=== PATIENT | female | born 1940 | race Caucasian/White ===

== ENCOUNTER 2017-06-12 08:22 | Inpatient (IN) ==
[2017-06-12] MEDS ORDERED: Lidocaine -MPF 1% 2 ML VIAL ID ONE (08:56)
[2017-06-12] MEDS ORDERED: Albuterol 2.5 MG/3 ML NEBULIZER IH ONE (08:56)
[2017-06-12] MEDS ORDERED: CeFAZolin Pre 2,000 MG/100 ML 2,000 MG/100 ML BAG IVPB ONE (08:56)
[2017-06-12] MEDS ORDERED: Ringers Solution, Lactated 1,000 ML IVC SCH (09:00)
--- NOTE | 2017-06-12 09:02 | History & Physical Report ---
Date of Encounter: 06/12/17 Time of Encounter: 08:59 24 Hour HP Update - Instructions Instructions: If the History and Physical is less than 30 days old and was completed prior to A.M. admission and or procedure and has NOT been updated on calendar day of procedure please complete this update prior to performing procedure. - Update Patient reports changes in Medical Condition: No Changes in examination, assessment, or condition: No Changes in Medication: No Preop tests/diagnostics Reviewed: Yes Pre-Op MRSA Screen: Negative Surgery Remains Indicated: Yes Consent for Planned Operative Procedure(s) Verified: Yes - Pre-Operative Checklist Preoperative Checklist Indicated: No Prophylactic Antibiotic Ordered: Yes Home Medications Include Beta Rosmery: Yes Beta Rosmery Taken Today (Day of Surgery): Yes Beta Rosmery Taken Yesterday (Day Prior to Surgery): Yes Is VTE Prophylaxis Indicated?: Yes
--- NOTE | 2017-06-12 09:15 | Anesthesia Evaluation PreOp ---
Date of Encounter: 06/12/17 Time of Encounter: 09:13 - Past History Planned Operation: pericardial window Cardiac History: HTN, Hyperlipidemia, Arrhythmia (afib), Cardiac Stent, Other ( CAD, small pericardial effusion, PAD) Pulmonary History: Smoker (had 2 this morning), Pack/yr (58), COPD, Other ( small cell lung CA, LULobectomy 09/06 for stage 1 cancer, no chemo/XRT) [employer]UTION SALES SENIOR EXECUTIVE History: Other (peripheral neuropathy) Other Medical History: Diabetes Type II, GERD, Other (remote colon obstruction) Anesthesia History: No Prior Anesthetic Complications, Past Anesthesia ( thoracotomy, left SIGIFREDO, appy, jaime, explor. lap with colon resection) : No Alcohol Use: none Drug use: none Medications and Allergies Acetaminophen w/Cod 300-30 mg [Tylenol w/Codeine #3] 1 each PO BID PRN 06/12/17 [History] Albuterol Neb [Proventil Neb] 2.5 mg IH TID PRN 06/12/17 [History] Aspirin 81 mg PO DAILY 06/12/17 [History] Atorvastatin Calcium [Lipitor] 20 mg PO DAILY 06/12/17 [History] Clopidogrel [Plavix] 75 mg PO DAILY 06/12/17 [History] DULoxetine [Cymbalta] 30 mg PO DAILY 06/12/17 [History] Enalapril Maleate [Vasotec] 10 mg PO DAILY 06/12/17 [History] Furosemide [Lasix] 20 mg PO DAILY 06/12/17 [History] Gabapentin [Neurontin] 300 mg PO BID 06/12/17 [History] Isosorbide MONOnitrate (24 HR) [Imdur] 60 mg PO DAILY 06/12/17 [History] Metoprolol XL (24 HR) Succ [Toprol XL] 25 mg PO DAILY 06/12/17 [History] Omeprazole [PriLOSEC] 20 mg PO DAILY 06/12/17 [History] metFORMIN [Glucophage] 500 mg PO TID 06/12/17 [History] 3 Allergy/AdvReac Type Severity Reaction Status Date / Time No Known Allergies Allergy Unverified 12/12/16 11:25 - Meds/Allergy Pre-op Review Medications Reviewed: Yes Allergies Reviewed: Yes Beta Blockers on Current Med List: Yes If Beta Blockers taken, Date/Time (Last Dose taken): this morning 914 Anesthesia Results - Labs Laboratory Tests 06/06/17 06/08/17 15:11 16:09 Hgb 13.6 Hct 39.4 Plt Count 226 Sodium 126 L Potassium 4.4 BUN 17 Creatinine 0.77 - Imaging Additional studies: echo: Impressions: LVEF 60-65%. Normal LV chamber size, wall thickness and function. Indeterminate diastolic function. Normal right ventricular structure and function. Mild tricuspid regurgitation. Mild pulmonary hypertension. Mild pulmonic regurgitation. There is a moderate pericardial effusion present. There is no echocardiographic evidence of tamponade. The IVC is not well evaluated. Nuc. stress test 12/05: Perfusion imaging was negative for ischemia or infarct. Baseline ECG demonstrates an ectopic atrial rhythm, possibly wandering atrial pacemaker. Gated EF = 55%. 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
[2017-06-12] MEDS ORDERED: *HR* Rocuronium Bromide 50 MG/5 ML VIAL ONE (09:24)
[2017-06-12] MEDS ORDERED: *HR* Etomidate 20 MG/10 ML AMPUL IVP ONE (09:24)
[2017-06-12] MEDS ORDERED: *HR* FentaNYL (PF) 250 MCG/5 ML VIAL ONE (09:25)
[2017-06-12] MEDS ORDERED: *HR* Midazolam HCl 5 MG/5 ML VIAL IVP ONE (09:25)
[2017-06-12] MEDS ORDERED: Ondansetron 4 MG/2 ML VIAL ONE (09:51)
[2017-06-12] MEDS ORDERED: Dexamethasone 4 MG/ML VIAL ONE (09:51)
[2017-06-12] MEDS ORDERED: *HR* Metoprolol 5 MG/5 ML VIAL IVP ONE (10:03)
[2017-06-12] MEDS ORDERED: Naloxone 0.4 MG/ML INJ IVP PRN (11:22)
[2017-06-12] MEDS ORDERED: *HR* Morphine 2 MG/ML SYRINGE IVP PRN (11:22)
[2017-06-12] MEDS ORDERED: *HR* Morphine 2 MG/ML SYRINGE ONE (11:26)
--- NOTE | 2017-06-12 11:38 | Operative Note ---
Date of procedure: 06/12/17 Pre-op diagnosis: Pericardial effusion, moderate. Post-op diagnosis: same Procedure: 1. Median sternotomy. 2. Anterior pericardial resection. Implants: None. Complications: None. Anesthesia: GETA Surgeon: Terri Mills Estimated blood loss (cc): 50 Specimen: 1. Pericardial fluid 2. Anterior pericardium Condition: stable Disposition: ICU Procedure in Detail: INDICATIONS FOR OPERATION: The patient is a 77-year-old type II diabetic, hypertensive lady with hypercholesterolemia, known coronary artery disease, known atrial fibrillation, and known small cell lung carcinoma, stage I. Patient has been followed by her certified professional controller, Dr. Gómez Benedict, for several years and in August 2016 complained of shortness of breath. The patient was referred to her noc technician who performed a chest x-ray. This showed a left upper lobe lung mass which was confirmed by chest CT. She underwent left upper lobectomy at [facility] in [facility]. The pathology was consistent with a Stage I small cell lung carcinoma. She was not recommended for postoperative chemotherapy or radiation therapy. The patient underwent an echocardiogram on May 19, 2017 which revealed an LVEF 60-65% with mild pulmonary hypertension and a moderate pericardial effusion. Dr. Benedict was concerned patient may have a recurrence of her small cell lung carcinoma manifested by a malignant pericardial effusion. Patient was referred for subxiphoid pericardial window and drainage of pericardial fluid to rule out metastatic disease. FINDINGS AT OPERATION: The patient had approximately 400 mL of yellow turbid fluid within the pericardium. The patient had a hyperexpanded right lung and shift of the pericardium towards the left due to her previous left upper lobe resection. This complicated closure of the pericardium and necessitated a median sternotomy to access the pericardium. DESCRIPTION OF OPERATION: After obtaining informed option for the patient, she was taken to the operative were satisfactory general endotracheal anesthetic was induced. Appropriate monitoring lines were placed and the patient's neck, chest, and upper abdomen were prepped and draped in a sterile fashion. Initially a small incision was made over the xiphoid process to the skin and subcutaneous tissue. The xiphoid process was lifted anteriorly; however, the pericardium could not be identified. The right lung was hyperinflated and crossed the midline. This coupled with the previous left upper lobe resection and volume loss in the left hemithorax shifted the pericardium to the left. The pericardium could not be exposed safely through this small incision. This point a standard median sternotomy incision was then made through the skin and subcutaneous tissue. The sternum was divided and laterally. The right lung was dissected from the anterior pericardium. The anterior pericardium was opened and a trigonal patch was removed and sent for permanent section. Approximately 400 mL of yellow turbid pericardial fluid was removed. A portion of this fluid was sent for CBC, chemistry, culture (including aerobic, anaerobic, fungal, and TB), and cytology. Two 32 Moroccan chest suture placed, one along the diaphragm and the pericardial space and the second into the right pleural space. The dura were reapproximated using sternal wires and the pectoralis major fascia, rectus abdominis fascia, subcutaneous tissue, and skin edges reapproximated using running Vicryl sutures. A negative pressure sterile dressing was placed on the sternotomy incision. The patient was transferred to the ICU in satisfactory postoperative condition. There were no intraoperative complications, and the instrument, needle, and sponge count were correct at end of operation.
[2017-06-12 12:04] LABS: Basophils # 0.1 K/mcL (0.0-0.2); Basophils % 0.4 %; Eosinophils # 0.2 K/mcL (0.0-0.6); Eosinophils % 1.1 %; Hematocrit 38.2 % (35.3-44.9); Hemoglobin 12.9 g/dL (11.5-15.4); Immature Granulocytes % 0.6 % (0-4); Lymphocytes # 1.1 K/mcL (0.6-4.6); Lymphocytes % 6.1 %; Mean Corpuscular HGB Conc 33.8 g/dL (31.6-35.5); Mean Corpuscular Hemoglobin 31.4 pg (28.0-33.3); Mean Corpuscular Volume 92.9 fL (83.0-100.0); Mean Platelet Volume 10.7 fL (9.4-12.4); Monocytes % 3.6 %; Neutrophils # 15.7 K/mcL (1.6-8.9); Platelet Count 212 K/mcL (140-400); Red Blood Count 4.11 M/mcL (3.82-4.97); Red Cell Distribution Width 14.1 % (11.5-14.5); Segmented Neutrophils % 88.2 %
[2017-06-12 12:08] LABS: Monocytes # 0.6 K/mcL (0.0-1.3)
[2017-06-12] MEDS: *HR* Morphine 2 MG/ML SYRINGE IVP PRN ×2 (12:11→14:57)
[2017-06-12 12:15] LABS: BUN/Creatinine Ratio 16 (6-26); Blood Urea Nitrogen 13 mg/dL (7-20); Calcium 9.1 mg/dL (8.6-10.8); Carbon Dioxide 28 mEq/L (19-29); Chloride 96 mEq/L (98-109); Glucose 127 mg/dL (70-99); Osmolality,Calculated 276 (280-300); Sodium 132 mEq/L (136-145); eGFR For African Americans > 60 (> 60); eGFR For Non-African Americans > 60 (> 60)
[2017-06-12] MEDS: Albuterol 2.5 MG/3 ML NEBULIZER IH SCH ×3 (13:20→20:10)
[2017-06-12 13:29] LABS: Glucose,Pericardial Fluid 112 mg/dL (No Ref Range)
[2017-06-12] MEDS: 0.9 % Sodium Chloride w KCl 20 MEQ/1,000 ML MLS IVC SCH (14:52)
[2017-06-12] MEDS: ceFAZolin 2,000 MG in D5% in Water 100 ML IVPB SCH (14:52)
[2017-06-12 14:55] LABS: Appearance of Pericardial Fl Clear (Clear)
[2017-06-12] MEDS: *HR* OxyCODONE/APAP 5/325 TABLET PO PRN ×2 (16:09→20:13)
[2017-06-13] MEDS: Albuterol 2.5 MG/3 ML NEBULIZER IH SCH ×7 (00:02→20:33)
[2017-06-13] MEDS: *HR* OxyCODONE/APAP 5/325 TABLET PO PRN ×3 (00:11→20:16)
[2017-06-13] MEDS: ceFAZolin 2,000 MG in D5% in Water 100 ML IVPB SCH (00:11)
[2017-06-13] MEDS: *HR* Morphine 2 MG/ML SYRINGE IVP PRN ×6 (00:24→16:57)
[2017-06-13] MEDS: 0.9 % Sodium Chloride w KCl 20 MEQ/1,000 ML MLS IVC SCH (04:58)
[2017-06-13 07:24] LABS: Basophils # 0.1 K/mcL (0.0-0.2); Basophils % 0.4 %; Eosinophils % 0.2 %; Hematocrit 35.8 % (35.3-44.9); Hemoglobin 11.9 g/dL (11.5-15.4); Immature Granulocytes % 0.6 % (0-4); Lymphocytes # 0.8 K/mcL (0.6-4.6); Lymphocytes % 5.7 %; Mean Corpuscular HGB Conc 33.2 g/dL (31.6-35.5); Mean Corpuscular Hemoglobin 31.3 pg (28.0-33.3); Mean Corpuscular Volume 94.2 fL (83.0-100.0); Mean Platelet Volume 10.7 fL (9.4-12.4); Monocytes # 1.1 K/mcL (0.0-1.3); Monocytes % 7.7 %; Neutrophils # 12.2 K/mcL (1.6-8.9); Platelet Count 207 K/mcL (140-400); Red Cell Distribution Width 14.3 % (11.5-14.5); Segmented Neutrophils % 85.4 %
[2017-06-13 07:35] LABS: BUN/Creatinine Ratio 17 (6-26); Blood Urea Nitrogen 14 mg/dL (7-20); Calcium 8.8 mg/dL (8.6-10.8); Carbon Dioxide 28 mEq/L (19-29); Chloride 95 mEq/L (98-109); Glucose 150 mg/dL (70-99); Osmolality,Calculated 273 (280-300); Potassium 4.4 mEq/L (3.5-4.5); Sodium 130 mEq/L (136-145); eGFR For African Americans > 60 (> 60); eGFR For Non-African Americans > 60 (> 60)
--- NOTE | 2017-06-13 07:39 | Cardiothoracic Progress Note ---
Date of Encounter: 06/13/17 Time of Encounter: 07:36 - Assessment and plan (1) Pericardial effusion Current Visit: Yes Status: Acute The patient is recovering well from her median sternotomy and anterior pericardial resection. She is experiencing some incisional discomfort and her pain medication will be adjusted accordingly. She will be transferred to the stepdown unit when a bed is available. The assessment and plan as outlined above was discussed with the patient and/or family members who expressed understanding and agreement. All questions were answered. - Subjective Procedure(s) Performed: POD#1 S/P Median sternotomy with anterior pericardial resection Interval history: The patient remained hemodynamically stable overnight. She has some incisional discomfort. Vital Signs, Last 4 Hours Temp Pulse Resp BP Pulse Ox 06/13/17 07:22 16 95 06/13/17 06:00 86 20 84/49 93 06/13/17 05:00 87 20 130/75 94 06/13/17 04:45 20 96 06/13/17 04:34 92 06/13/17 04:00 97.6 F 80 18 120/47 96 Oxgyen Flow Rate Oxygen Flow Rate (LPM) 2 Clinical Data, last 8 Hours Output, Chest Tube Drainage 26 Amount [Mediastinal #2] Output, Chest Tube Drainage 100 Amount [Mediastinal #1] Weight 06/11/17 06/12/17 06/13/17 23:59 23:59 23:59 Weight 53.977 kg - Physical Examination General: Conversant, No Apparent Distress Neck: No JVD, Normal carotid pulses Cardiac: Reg Rate and Rhythm, Normal S1 and S2, No Murmur Incision: No signs of infection, Dry/intact dressing Sternum: Stable Chest tubes: Minimal drainage, Other (No air leak.) Lungs: Other (Expiratory wheezes bilaterally.) Neuro: Alert and responsive, No focal deficits noted Vascular: Normal capillary refill Extremities: No Clubbing, No Cyanosis, No Edema - Labs 06/12/17 11:55 06/13/17 06:45 Lab Results, Last 24 hours 06/12/17 06/12/17 06/13/17 11:55 11:56 06:45 WBC 17.8 H D Hgb 12.9 Hct 38.2 Plt Count 212 Sodium 132 L 130 L Potassium 4.0 4.4 Chloride 96 L 95 L Carbon Dioxide 28 28 BUN 13 14 Creatinine 0.80 0.84 Glucose 127 H 150 H Calcium 9.1 8.8 - Imaging Chest Xray: image reviewed (No pneumothorax. Minimal right basilar atelectasis/ infiltrates.) - VTE Documentation of Mechanical Device: Intermittent pneumatic compression device Consult Discharge Plan - Plan Referrals: Kyree Epstein CNP [Primary Care Provider] -
[2017-06-13] MEDS ORDERED: *HR* Dextrose 50 % in Water (Syg) 50 ML SYRINGE IVP PRN (07:51)
[2017-06-13] MEDS ORDERED: Dextrose Gel 15 GM PO PRN ×2 (07:51)
[2017-06-13] MEDS ORDERED: D5% in Water 1,000 ML IVC PRN (07:51)
[2017-06-13] MEDS ORDERED: *HR* Morphine 2 MG/ML SYRINGE IVP PRN (07:51)
[2017-06-13] MEDS ORDERED: Naloxone 0.4 MG/ML INJ IVP PRN (07:51)
[2017-06-13] MEDS: Aspirin 81 MG TAB.CHEW PO SCH (08:39)
[2017-06-13] MEDS: Isosorbide MONOnitrate (24 HR) 60 MG TAB.ER.24H PO SCH (08:39)
[2017-06-13] MEDS: Metoprolol XL (24 HR) Succ 25 MG TAB.ER.24H PO SCH (08:40)
[2017-06-13] MEDS: *HR* Metformin 500 MG TABLET PO SCH ×3 (08:40→20:16)
[2017-06-13] MEDS: Gabapentin 300 MG CAPSULE PO SCH ×2 (08:40→20:16)
[2017-06-13] MEDS: Insulin LISPRO 300 UNITS/3 ML VIAL SQ SCH ×4 (08:41→20:21)
[2017-06-13] MEDS ORDERED: Lisinopril 20 MG TABLET PO SCH (09:00)
[2017-06-13] MEDS ORDERED: Furosemide 20 MG TABLET PO SCH (09:00)
--- NOTE | 2017-06-13 14:42 | Anesthesia Evaluation Post Op ---
Date of Encounter: 06/13/17 Time of Encounter: 14:30 - Vital Signs Vital Signs: Selected Entries 06/13/17 12:00 06/13/17 13:00 Temperature 98.1 F Pulse Rate 104 Respiratory Rate 18 Blood Pressure 70/57 O2 Sat by Pulse Oximetry 95 Oxygen Flow Rate (LPM) 2 Oxygen Delivery Method Nasal Cannula - Lungs Lungs: Clear Ascult./Percussion - Airway Airway: Non-obstructed - Cardiovascular Regular Rate - Mental Status Mental Status: Alert & Oriented, Answers Appropriately - Pain Pain Scale: 4 Pain Scale used: Numeric (1 - 10) - Nausea Vomiting Nausea Vomiting: Not Present - Hydration Hydration: Tolerates oral liquids, Able to void - Discharge PostOp Status: Transfer Patient to floor (when bed available. CT surgery adjusting pain meds)
[2017-06-14] MEDS: Albuterol 2.5 MG/3 ML NEBULIZER IH SCH ×7 (00:02→23:39)
[2017-06-14] MEDS: *HR* OxyCODONE/APAP 5/325 TABLET PO PRN ×4 (04:42→21:32)
[2017-06-14 06:43] LABS: Basophils % 0.3 %; Eosinophils # 0.1 K/mcL (0.0-0.6); Eosinophils % 1.1 %; Hematocrit 28.2 % (35.3-44.9); Immature Granulocytes % 0.6 % (0-4); Lymphocytes # 0.9 K/mcL (0.6-4.6); Lymphocytes % 10.4 %; Mean Corpuscular HGB Conc 33.7 g/dL (31.6-35.5); Mean Corpuscular Volume 94.9 fL (83.0-100.0); Mean Platelet Volume 10.9 fL (9.4-12.4); Monocytes # 0.8 K/mcL (0.0-1.3); Monocytes % 9.1 %; Neutrophils # 7.1 K/mcL (1.6-8.9); Platelet Count 158 K/mcL (140-400); Red Blood Count 2.97 M/mcL (3.82-4.97); Red Cell Distribution Width 14.3 % (11.5-14.5); Segmented Neutrophils % 78.5 %
[2017-06-14 06:45] LABS: Hemoglobin 9.5 g/dL (11.5-15.4)
[2017-06-14 06:55] LABS: BUN/Creatinine Ratio 21 (6-26); Blood Urea Nitrogen 15 mg/dL (7-20); Carbon Dioxide 30 mEq/L (19-29); Chloride 98 mEq/L (98-109); Glucose 123 mg/dL (70-99); Osmolality,Calculated 276 (280-300); Potassium 4.5 mEq/L (3.5-4.5); Sodium 132 mEq/L (136-145); eGFR For African Americans > 60 (> 60); eGFR For Non-African Americans > 60 (> 60)
[2017-06-14] MEDS: Insulin LISPRO 300 UNITS/3 ML VIAL SQ SCH ×4 (08:44→21:33)
[2017-06-14] MEDS: Gabapentin 300 MG CAPSULE PO SCH ×2 (08:45→21:32)
[2017-06-14] MEDS: Aspirin 81 MG TAB.CHEW PO SCH (08:45)
[2017-06-14] MEDS: Isosorbide MONOnitrate (24 HR) 60 MG TAB.ER.24H PO SCH (08:45)
[2017-06-14] MEDS: *HR* Metformin 500 MG TABLET PO SCH ×3 (08:45→21:32)
--- NOTE | 2017-06-14 08:57 | Cardiothoracic Progress Note ---
Date of Encounter: 06/14/17 Time of Encounter: 08:54 - Assessment and plan (1) Pericardial effusion Current Visit: Yes Status: Acute The patient is recovering well from her median sternotomy and anterior pericardial resection. She is less incisional discomfort today. Her blood pressure decreased after she received her home medications yesterday and this will be adjusted accordingly. The cytology and pathology of the pericardial fluid and pericardium respectively show no evidence of malignancy. The chest tubes continue to drain and will remain on suction until the chest tube output has decreased. The assessment and plan as outlined above was discussed with the patient and/or family members who expressed understanding and agreement. All questions were answered. - Subjective Procedure(s) Performed: POD#2 S/P Median sternotomy with anterior pericardial resection Interval history: The patient remained hemodynamically stable overnight. She has some incisional discomfort. Vital Signs, Last 4 Hours Temp Pulse Resp BP Pulse Ox 06/14/17 08:49 118 158/73 06/14/17 07:41 98.3 F 101 20 124/109 96 Oxgyen Flow Rate Oxygen Flow Rate (LPM) 2 Weight 06/12/17 06/13/17 06/14/17 23:59 23:59 23:59 Weight 53.977 kg 56.01 kg - Physical Examination General: Conversant, No Apparent Distress Neck: No JVD, Normal carotid pulses Cardiac: Reg Rate and Rhythm, Normal S1 and S2, No Murmur Incision: No signs of infection, Dry/intact dressing Sternum: Stable Chest tubes: Minimal drainage, Other (No air leak.) Lungs: Other (Wheezes and rhonchi bilaterally.) Neuro: Alert and responsive, No focal deficits noted Vascular: Normal capillary refill Extremities: No Clubbing, No Cyanosis, No Edema - Labs 06/14/17 05:49 06/14/17 05:49 Lab Results, Last 24 hours 06/14/17 06/14/17 05:49 05:49 WBC 9.0 Hgb 9.5 L D Hct 28.2 L Plt Count 158 Sodium 132 L Potassium 4.5 Chloride 98 Carbon Dioxide 30 H BUN 15 Creatinine 0.73 Glucose 123 H Calcium 9.0 - Imaging Chest Xray: image reviewed (No pneumothorax. Minimal right lower love atelectasis/infiltrate.) - VTE Documentation of Mechanical Device: Intermittent pneumatic compression device Consult Discharge Plan - Plan Referrals: Kyree Epstein CNP [Primary Care Provider] -
[2017-06-14] MEDS: Metoprolol XL (24 HR) Succ 25 MG TAB.ER.24H PO SCH (09:46)
[2017-06-14] MEDS: Nicotine 21 MG PATCH.TD24 TD SCH (09:46)
[2017-06-15] MEDS: Albuterol 2.5 MG/3 ML NEBULIZER IH SCH ×6 (03:34→23:23)
[2017-06-15] MEDS: *HR* OxyCODONE/APAP 5/325 TABLET PO PRN ×4 (04:09→21:09)
--- NOTE | 2017-06-15 08:02 | Cardiothoracic Progress Note ---
Date of Encounter: 06/15/17 Time of Encounter: 07:58 - Assessment and plan (1) Pericardial effusion Current Visit: Yes Status: Acute The patient is recovering well from her median sternotomy and anterior pericardial resection. She has less incisional discomfort today. Her blood pressure decreased again after she received a smaller dose of beta velasquez yesterday. This will be adjusted accordingly. The chest tube drainage has decreased from yesterday. The patient will need aggressive physical therapy and occupational therapy prior to discharge. Currently she is refusing transfer to an extended care facility as a bridge to home. The assessment and plan as outlined above was discussed with the patient and/or family members who expressed understanding and agreement. All questions were answered. - Subjective Procedure(s) Performed: POD#3 S/P Median sternotomy with anterior pericardial resection Interval history: The patient remained hemodynamically stable overnight. She has less incisional discomfort. She had difficulty ambulating in the room yesterday. Vital Signs, Last 4 Hours Temp Pulse Resp BP Pulse Ox 06/15/17 07:53 97.7 F 60 16 128/72 98 06/15/17 07:49 18 100 Oxgyen Flow Rate Oxygen Flow Rate (LPM) 1 Clinical Data, last 8 Hours Output, Chest Tube Drainage 10 Amount [Mediastinal #2] Output, Chest Tube Drainage 10 Amount [Mediastinal #1] Output, Urine Amount 150 Weight 06/13/17 06/14/17 06/15/17 23:59 23:59 23:59 Weight 56.01 kg 56.6 kg - Physical Examination General: Conversant, No Apparent Distress HEENT: Atraumatic, Normocephaly, Trachea midline Neck: No JVD, Normal carotid pulses Cardiac: Normal S1 and S2, No Murmur, Other (Irregular rate and rhythm (atrial fibrillation)) Incision: No signs of infection, Dry/intact dressing Sternum: Stable Chest tubes: Minimal drainage, Other (No air leak.) Lungs: Normal Breath Sounds Neuro: Alert and responsive, No focal deficits noted Vascular: Normal capillary refill Extremities: No Clubbing, No Cyanosis, No Edema - Labs 06/14/17 05:49 06/14/17 05:49 - Imaging Chest Xray: image reviewed (No pneumothorax. Minimal right basilar atelectasis/ infiltrates) - VTE Documentation of Mechanical Device: Intermittent pneumatic compression device Consult Discharge Plan - Plan Referrals: Terri Mills MD [Partnered Physician] - 06/29/17 2:00 pm Kyree Epstein CNP [Primary Care Provider] -
[2017-06-15] MEDS: Insulin LISPRO 300 UNITS/3 ML VIAL SQ SCH ×3 (08:09→16:26)
[2017-06-15] MEDS: Aspirin 81 MG TAB.CHEW PO SCH (09:02)
[2017-06-15] MEDS: Nicotine 21 MG PATCH.TD24 TD SCH (09:03)
[2017-06-15] MEDS: *HR* Metformin 500 MG TABLET PO SCH ×3 (09:03→21:09)
[2017-06-15] MEDS: Isosorbide MONOnitrate (24 HR) 60 MG TAB.ER.24H PO SCH (09:03)
[2017-06-15] MEDS: Gabapentin 300 MG CAPSULE PO SCH ×2 (09:03→21:08)
[2017-06-16] MEDS: Insulin LISPRO 300 UNITS/3 ML VIAL SQ SCH ×5 (02:41→21:01)
[2017-06-16] MEDS: Albuterol 2.5 MG/3 ML NEBULIZER IH SCH ×6 (03:46→23:44)
[2017-06-16 06:21] LABS: BUN/Creatinine Ratio 19 (6-26); Basophils # 0.1 K/mcL (0.0-0.2); Basophils % 0.5 %; Blood Urea Nitrogen 13 mg/dL (7-20); Calcium 9.2 mg/dL (8.6-10.8); Carbon Dioxide 27 mEq/L (19-29); Chloride 98 mEq/L (98-109); Eosinophils # 0.5 K/mcL (0.0-0.6); Eosinophils % 5.1 %; Glucose 108 mg/dL (70-99); Hematocrit 34.4 % (35.3-44.9); Immature Granulocytes % 0.5 % (0-4); Lymphocytes # 1.3 K/mcL (0.6-4.6); Lymphocytes % 14.3 %; Mean Corpuscular HGB Conc 33.4 g/dL (31.6-35.5); Mean Corpuscular Hemoglobin 31.8 pg (28.0-33.3); Mean Platelet Volume 10.7 fL (9.4-12.4); Monocytes # 0.7 K/mcL (0.0-1.3); Neutrophils # 6.6 K/mcL (1.6-8.9); Osmolality,Calculated 275 (280-300); Platelet Count 217 K/mcL (140-400); Potassium 4.6 mEq/L (3.5-4.5); Red Blood Count 3.62 M/mcL (3.82-4.97); Red Cell Distribution Width 14.1 % (11.5-14.5); Segmented Neutrophils % 71.6 %; Sodium 132 mEq/L (136-145); eGFR For African Americans > 60 (> 60); eGFR For Non-African Americans > 60 (> 60)
[2017-06-16 06:24] LABS: Hemoglobin 11.5 g/dL (11.5-15.4)
--- NOTE | 2017-06-16 07:39 | Cardiothoracic Progress Note ---
Date of Encounter: 06/16/17 Time of Encounter: 07:36 - Assessment and plan (1) Pericardial effusion Current Visit: Yes Status: Acute The patient is recovering well from her median sternotomy and anterior pericardial resection. The patient will need aggressive physical therapy prior to discharge. She had difficulty ambulating the room yesterday, stating that she must use her arms been ambulating at home. She will be unable to do this for 2 months because of her recent sternotomy incision. She has agreed to go to rehabilitation as a bridge to home. The chest tube drainage has decreased chest tube remained on suction. The assessment and plan as outlined above was discussed with the patient and/or family members who expressed understanding and agreement. All questions were answered. - Subjective Procedure(s) Performed: POD#4 S/P Median sternotomy with anterior pericardial resection Interval history: The patient remained hemodynamically stable overnight. She had difficulty ambulating in the room yesterday, stating that she must use her arms while ambulating at home.. Vital Signs, Last 4 Hours Temp Pulse Resp BP Pulse Ox 06/16/17 04:49 98.2 F 98 16 136/64 94 Oxgyen Flow Rate Oxygen Flow Rate (LPM) 1 Clinical Data, last 8 Hours Output, Chest Tube Drainage 20 Amount [Mediastinal #2] Output, Chest Tube Drainage 20 Amount [Mediastinal #1] Weight 06/14/17 06/15/17 06/16/17 23:59 23:59 23:59 Weight 56.01 kg 56.6 kg 57.4 kg - Physical Examination General: Conversant, No Apparent Distress Neck: No JVD, Normal carotid pulses Cardiac: Normal S1 and S2, No Murmur, Other (Irregular rate and rhythm (atrial fibrillation).) Incision: No signs of infection, Dry/intact dressing Sternum: Stable Chest tubes: Minimal drainage, Other (No air leak.) Lungs: Normal Breath Sounds, No Wheeze, Rales, Rhonchi Neuro: Alert and responsive, No focal deficits noted Vascular: Normal capillary refill Musculoskeletal: No Chest Wall Tenderness Extremities: No Clubbing, No Cyanosis, No Edema - Labs 06/16/17 05:14 06/16/17 05:14 Lab Results, Last 24 hours 06/16/17 06/16/17 05:14 05:14 WBC 9.2 Hgb 11.5 D Hct 34.4 L Plt Count 217 Sodium 132 L Potassium 4.6 H Chloride 98 Carbon Dioxide 27 BUN 13 Creatinine 0.69 Glucose 108 H Calcium 9.2 - Imaging Chest Xray: image reviewed (No pneumothorax. Small bilateral pleural effusions, unchanged.) - VTE Documentation of Mechanical Device: Intermittent pneumatic compression device Consult Discharge Plan - Plan Referrals: Terri Mills MD [Partnered Physician] - 06/29/17 2:00 pm Kyree Epstein CNP [Primary Care Provider] -
[2017-06-16] MEDS: Isosorbide MONOnitrate (24 HR) 60 MG TAB.ER.24H PO SCH (08:23)
[2017-06-16] MEDS: *HR* Metformin 500 MG TABLET PO SCH ×3 (08:23→21:01)
[2017-06-16] MEDS: Gabapentin 300 MG CAPSULE PO SCH ×2 (08:23→21:01)
[2017-06-16] MEDS: Aspirin 81 MG TAB.CHEW PO SCH (08:23)
[2017-06-16] MEDS: *HR* OxyCODONE/APAP 5/325 TABLET PO PRN ×2 (08:32→12:37)
[2017-06-16] MEDS: Nicotine 21 MG PATCH.TD24 TD SCH (08:38)
[2017-06-17] MEDS: Albuterol 2.5 MG/3 ML NEBULIZER IH SCH ×6 (03:17→23:31)
[2017-06-17] MEDS: *HR* OxyCODONE/APAP 5/325 TABLET PO PRN ×4 (03:50→19:59)
[2017-06-17] MEDS: Insulin LISPRO 300 UNITS/3 ML VIAL SQ SCH ×4 (08:54→19:59)
[2017-06-17] MEDS: Gabapentin 300 MG CAPSULE PO SCH ×2 (08:55→19:58)
[2017-06-17] MEDS: Isosorbide MONOnitrate (24 HR) 60 MG TAB.ER.24H PO SCH (08:55)
[2017-06-17] MEDS: *HR* Metformin 500 MG TABLET PO SCH ×3 (08:56→19:58)
[2017-06-17] MEDS: Aspirin 81 MG TAB.CHEW PO SCH (08:56)
[2017-06-17] MEDS: Nicotine 21 MG PATCH.TD24 TD SCH (08:56)
--- NOTE | 2017-06-17 09:56 | Cardiothoracic Progress Note ---
Date of Encounter: 06/17/17 Time of Encounter: 09:54 - Assessment and plan (1) Pericardial effusion Current Visit: Yes Status: Acute The patient is recovering well from her median sternotomy and anterior pericardial resection. The patient will need aggressive physical therapy prior to discharge. She still has difficulty ambulating the room, stating that she must use her arms been ambulating at home. She will be unable to do this for 2 months because of her recent sternotomy incision. She has agreed to go to rehabilitation as a bridge to home. The chest tube drainage has decreased chest tube remained on suction. The assessment and plan as outlined above was discussed with the patient and/or family members who expressed understanding and agreement. All questions were answered. - Subjective Procedure(s) Performed: POD#5 S/P Median sternotomy with anterior pericardial resection Interval history: The patient remained hemodynamically stable overnight. She still has difficulty ambulating in the room yesterday, stating that she must use her arms while ambulating at home. Vital Signs, Last 4 Hours Temp Pulse Resp BP Pulse Ox 06/17/17 09:22 89 92 06/17/17 07:47 17 96 06/17/17 07:22 97.6 F 89 18 117/65 96 Oxgyen Flow Rate Oxygen Flow Rate (LPM) 1 Clinical Data, last 8 Hours Output, Chest Tube Drainage 10 Amount [Mediastinal #2] Output, Chest Tube Drainage 20 Amount [Mediastinal #2] Output, Chest Tube Drainage 10 Amount [Mediastinal #1] Output, Chest Tube Drainage 40 Amount [Mediastinal #1] Weight 06/15/17 06/16/17 06/17/17 23:59 23:59 23:59 Weight 56.6 kg 57.4 kg - Physical Examination General: Conversant, No Apparent Distress Neck: No JVD, Normal carotid pulses Cardiac: Normal S1 and S2, No Murmur, Other (Irregular rate and rhythm (atrial fibrillation).) Incision: No signs of infection, Dry/intact dressing Sternum: Stable Chest tubes: Minimal drainage, Other (No air leak.) Lungs: Other (Expiratory wheezes) Neuro: Alert and responsive, No focal deficits noted Vascular: Normal capillary refill Extremities: No Clubbing, No Cyanosis, No Edema - Labs 06/16/17 05:14 06/16/17 05:14 - Imaging Chest Xray: image reviewed (No pneumothorax. Minimal right basilar atelectasis/ infiltrate.) - VTE Documentation of Mechanical Device: Intermittent pneumatic compression device Consult Discharge Plan - Plan Referrals: Terri Mills MD [Partnered Physician] - 06/29/17 2:00 pm Kyree Epstein CNP [Primary Care Provider] -
[2017-06-17] MEDS: ALPRAZolam 0.5 MG TABLET PO PRN ×2 (18:27→23:36)
[2017-06-18] MEDS: Albuterol 2.5 MG/3 ML NEBULIZER IH SCH ×6 (03:43→23:26)
[2017-06-18] MEDS: Insulin LISPRO 300 UNITS/3 ML VIAL SQ SCH ×4 (07:31→21:23)
[2017-06-18] MEDS: Aspirin 81 MG TAB.CHEW PO SCH (07:48)
[2017-06-18] MEDS: *HR* Metformin 500 MG TABLET PO SCH ×3 (07:48→21:23)
[2017-06-18] MEDS: Gabapentin 300 MG CAPSULE PO SCH ×2 (07:48→21:23)
[2017-06-18] MEDS: Isosorbide MONOnitrate (24 HR) 60 MG TAB.ER.24H PO SCH (07:48)
--- NOTE | 2017-06-18 07:48 | Cardiothoracic Progress Note ---
Date of Encounter: 06/18/17 Time of Encounter: 07:46 - Assessment and plan (1) Pericardial effusion Current Visit: Yes Status: Acute The patient is recovering well from her median sternotomy and anterior pericardial resection. The patient will need aggressive physical therapy prior to discharge. Although her ambulation is improving, she still has difficulty ambulating in the room without using her arms. She will be unable to do this for 2 months because of her recent sternotomy incision. She has agreed to go to rehabilitation as a bridge to home. The chest tube drainage has decreased chest tube remained on suction. The assessment and plan as outlined above was discussed with the patient and/or family members who expressed understanding and agreement. All questions were answered. - Subjective Procedure(s) Performed: POD#6 S/P Median sternotomy with anterior pericardial resection Interval history: The patient remained hemodynamically stable overnight. Her ambulation is improving every day. Vital Signs, Last 4 Hours Temp Pulse Resp BP Pulse Ox 06/18/17 07:23 98.0 F 81 18 95/67 96 06/18/17 03:52 97.8 F 86 18 124/53 96 Oxgyen Flow Rate Oxygen Flow Rate (LPM) 2 Clinical Data, last 8 Hours Output, Urine Amount 0 Weight 06/16/17 06/17/17 06/18/17 23:59 23:59 23:59 Weight 57.4 kg 58.4 kg - Physical Examination General: Conversant, No Apparent Distress Neck: No JVD, Normal carotid pulses Cardiac: Normal S1 and S2, No Murmur, Other (Irregular rate and rhythm (atrial fibrillation).) Incision: No signs of infection, Dry/intact dressing Sternum: Stable Chest tubes: Minimal drainage, Other (No air leak.) Lungs: Other (Few wheezes bilaterally.) Neuro: Alert and responsive, No focal deficits noted Vascular: Normal capillary refill Musculoskeletal: No Chest Wall Tenderness Extremities: No Clubbing, No Cyanosis, No Edema - Labs 06/16/17 05:14 06/16/17 05:14 - VTE Documentation of Mechanical Device: Intermittent pneumatic compression device Consult Discharge Plan - Plan Referrals: Terri Mills MD [Partnered Physician] - 06/29/17 2:00 pm Kyree Epstein CNP [Primary Care Provider] -
[2017-06-18] MEDS: Nicotine 21 MG PATCH.TD24 TD SCH (07:49)
[2017-06-18] MEDS: *HR* HYDROcodone/Acet 5/325 mg TABLET PO PRN ×2 (08:24→17:31)
[2017-06-18] MEDS: ALPRAZolam 0.5 MG TABLET PO PRN ×2 (12:15→21:23)
[2017-06-19] MEDS: Albuterol 2.5 MG/3 ML NEBULIZER IH SCH ×3 (03:09→11:29)
[2017-06-19] MEDS: Isosorbide MONOnitrate (24 HR) 60 MG TAB.ER.24H PO SCH ×2 (08:30→08:47)
[2017-06-19] MEDS: *HR* Metformin 500 MG TABLET PO SCH (08:30)
[2017-06-19] MEDS: Aspirin 81 MG TAB.CHEW PO SCH (08:30)
[2017-06-19] MEDS: Gabapentin 300 MG CAPSULE PO SCH (08:30)
[2017-06-19] MEDS: Nicotine 21 MG PATCH.TD24 TD SCH (08:31)
[2017-06-19] MEDS: Insulin LISPRO 300 UNITS/3 ML VIAL SQ SCH ×2 (08:47→11:44)
--- NOTE | 2017-06-19 08:52 | Discharge Summary ---
Date of Encounter: 06/19/17 Time of Encounter: 08:46 - Discharge Diagnosis (1) Pericardial effusion Priority: Primary Status: Acute - Discharge Medications Prescriptions: Acetaminophen w/Cod 300-30 mg [Tylenol w/Codeine #3] 1 each PO QID PRN #42 tablet PRN Reason: Pain Metoprolol [Lopressor] 12.5 mg PO BID #60 tablet Nicotine Patch [Nicoderm] 21 mg TD DAILY #30 patch.td24 Home Medications: Albuterol Neb [Proventil Neb] 2.5 mg IH TID PRN 06/12/17 [History] Aspirin 81 mg PO DAILY 06/12/17 [History] Atorvastatin Calcium [Lipitor] 20 mg PO DAILY 06/12/17 [History] Clopidogrel [Plavix] 75 mg PO DAILY 06/12/17 [History] DULoxetine [Cymbalta] 30 mg PO DAILY 06/12/17 [History] Furosemide [Lasix] 20 mg PO DAILY 06/12/17 [History] Gabapentin [Neurontin] 300 mg PO BID 06/12/17 [History] Isosorbide MONOnitrate (24 HR) [Imdur] 60 mg PO DAILY 06/12/17 [History] Omeprazole [PriLOSEC] 20 mg PO DAILY 06/12/17 [History] metFORMIN [Glucophage] 500 mg PO TID 06/12/17 [History] Acetaminophen w/Cod 300-30 mg [Tylenol w/Codeine #3] 1 each PO QID PRN #42 tablet 06/19/17 [Rx] Metoprolol [Lopressor] 12.5 mg PO BID #60 tablet 06/19/17 [Rx] Nicotine Patch [Nicoderm] 21 mg TD DAILY #30 patch.td24 06/19/17 [Rx] Allergies/Adverse Reactions: 3 Allergy/AdvReac Type Severity Reaction Status Date / Time No Known Allergies Allergy Unverified 12/12/16 11:25 Date of admission: 06/12/17 10:53 Primary care physician: Kyree Epstein CNP Consults: 06/15/17 08:02 Consult to Physical Therapy [CONS] Routine Comment: Evaluate, develop and implement POC Reason for Consult: Assist with ambulation. Currently patient requires a walker at home. 06/16/17 07:36 OT [Consult to Occupational Therapy] [CONS] Routine Comment: Evaluate, develop and implement POC Reason for Consult: surgery Procedure(s) Performed: 1. Median sternotomy with anterior pericardial resection performed June 12, 2017. Discharging clinician: Terri Mills Anticipated date of discharge: 06/19/17 - Patient Status Disposition: Transfer Inpatient Rehab Fac Condition: Good Functional capacity at discharge: uses cane/walker Overall status at discharge: patient is progressing back to baseline - Discharge Instructions Follow Up With: Terri Mills MD [Partnered Physician] - 06/29/17 2:00 pm Kyree Epstein CNP [Primary Care Provider] - - Diet and Activity Activity: sternal precautions, no driving for four weeks, no lifting greater than 10 pounds for eight weeks, wear oxygen at all times (2 L/min via nasal cannula) Diet: diabetic diet - Hospital Course Hospital course: Ms. Siddiqui is a 77-year-old type II diabetic, hypertensive lady with hypercholesterolemia, known coronary artery disease, known atrial fibrillation, and known small cell lung carcinoma, stage I. Patient has been followed by her railway engineer, Dr. Gómez Benedict, for several years and in August 2016 complained of shortness of breath. The patient was referred to her pharmacy specialist who performed a chest x-ray. This showed a left upper lobe lung mass which was confirmed by chest CT. She underwent left upper lobectomy at [facility] in [facility]. The pathology was consistent with a Stage I small cell lung carcinoma. She was not recommended for postoperative chemotherapy or radiation therapy. The patient underwent an echocardiogram on May 19, 2017 which revealed an LVEF 60-65% with mild pulmonary hypertension and a moderate pericardial effusion. Dr. Benedict was concerned patient may have a recurrence of her small cell lung carcinoma manifested by a malignant pericardial effusion. Patient was referred for subxiphoid pericardial window and drainage of pericardial fluid to rule out metastatic disease. The patient underwent an attempted subxiphoid pericardial window on Monday, June 12, 2017. Time of surgery the patient was noted to have a hyperinflated right lung which crossed the midline. The pericardium could not be identified and the patient required a median sternotomy in order to adequately expose the pericardium safely. An anterior patch of the pericardium was removed as was the pericardial fluid. The pericardium and fluid were sent for permanent pathology and cytology respectively and both were negative for malignancy. Two chest tubes were placed at the time of surgery, one along the diaphragm and one into the right pleural space. These remained in place for 7 days while the pericardial fluid drainage continued to decrease. The tubes were removed on POD# 7 and the patient was transferred to [facility] for inpatient rehabilitation as a bridge to home. - Time Spent with Patient Total time spent providing and/or coordinating discharge services: Physical Examination Vital Signs, Last 4 Hours Temp Pulse Resp BP Pulse Ox 06/19/17 07:40 18 97 06/19/17 07:11 98.0 F 78 15 91/61 97 General: Conversant, No Apparent Distress HEENT: Atraumatic, Normocephaly, Trachea midline Neck: No JVD, Normal carotid pulses Cardiac: Normal S1 and S2, No Murmur, Other (Irregular rate and rhythm (atrial fibrillation, chronic).) Lungs: Other (Few wheezes bilaterally) Neuro: Alert and responsive, No focal deficits noted Vascular: Normal capillary refill Abdomen: Soft, Non-tender Skin: No rashes noted on visualized skin Musculoskeletal: Other (Sternum stable to both deep breathing and coughing.) Extremities: No Clubbing, No Cyanosis, No Edema - VTE Documentation of Mechanical Device: Intermittent pneumatic compression device
[2017-06-19] MEDS: *HR* HYDROcodone/Acet 5/325 mg TABLET PO PRN (08:53)
--- NOTE | 2017-06-19 08:59 | Physician Discharge Referral ---
ExtendedCare Referral Info Transfer To: [facility] Provider in Charge: Surjit Epstein Provider in Charge after Transfer: PCP Institutional Level of Care: Skilled - Diagnosis (1) Pericardial effusion Priority: Primary Status: Acute Expected Duration of Placement: 2 weeks Prognosis: Good Aware of Diagnosis: Patient Aware of Prognosis: Patient - Transfer Medications Prescriptions: Acetaminophen w/Cod 300-30 mg [Tylenol w/Codeine #3] 1 each PO QID PRN #42 tablet PRN Reason: Pain Metoprolol [Lopressor] 12.5 mg PO BID #60 tablet Nicotine Patch [Nicoderm] 21 mg TD DAILY #30 patch.td24 Home Medications: Albuterol Neb [Proventil Neb] 2.5 mg IH TID PRN 06/12/17 [History] Aspirin 81 mg PO DAILY 06/12/17 [History] Atorvastatin Calcium [Lipitor] 20 mg PO DAILY 06/12/17 [History] Clopidogrel [Plavix] 75 mg PO DAILY 06/12/17 [History] DULoxetine [Cymbalta] 30 mg PO DAILY 06/12/17 [History] Furosemide [Lasix] 20 mg PO DAILY 06/12/17 [History] Gabapentin [Neurontin] 300 mg PO BID 06/12/17 [History] Isosorbide MONOnitrate (24 HR) [Imdur] 60 mg PO DAILY 06/12/17 [History] Omeprazole [PriLOSEC] 20 mg PO DAILY 06/12/17 [History] metFORMIN [Glucophage] 500 mg PO TID 06/12/17 [History] Acetaminophen w/Cod 300-30 mg [Tylenol w/Codeine #3] 1 each PO QID PRN #42 tablet 06/19/17 [Rx] Metoprolol [Lopressor] 12.5 mg PO BID #60 tablet 06/19/17 [Rx] Nicotine Patch [Nicoderm] 21 mg TD DAILY #30 patch.td24 06/19/17 [Rx] Allergies/Adverse Reactions: 3 Allergy/AdvReac Type Severity Reaction Status Date / Time No Known Allergies Allergy Unverified 12/12/16 11:25 - Respiratory Orders Oxygen / L per min (2L/min via nasal cannula) Smoking Cessation: Smoking cessation has been advised. For more information, call the [place] Tobacco Quit Line at 9-846-DEEW-NOW. - Ancillary Orders May use pressure relief devices daily prn, May go on ANDREZ w/family/respon green party w /meds at nurse discretion PRN - Advance Directives Code Status: Full Code - Rehabiliation Orders Rehab Potential: Good Rehab Orders: Sternal Precautions, ROM Exercises, Evaluation for Physical Therapy, Evaluation for Occupational Therapy - Treatments Skin tear care topically daily PRN per policy, May check for fecal impaction rectally daily PRN, Fleet enema rectally every other day PRN cleansing purposes - Diet Orders Regular CERTIFICATION: I certify that the transfer of the above named patient to an Extended Care Facility is necessary for the continuing treatment of the diagnosis listed. The above information is true and accurate reflection of patient's current condition. Confidential - Redisclosure prohibited without a patient's written consent.
[2017-06-19 11:32] VITALS: BP 100/52
[2017-06-19] MEDS: ALPRAZolam 0.5 MG TABLET PO PRN (11:54)
[2017-06-19] MEDS ORDERED: FLUARIX QUAD 2017-18 36MOS UP/PF 0.5 ML SYRINGE IM ONE (13:16)
== END 2017-06-19 14:49 | DRG 271 ==
LOC: SAMDAY 08:22 → ICNU 10:53 → 2NNU 06-14 07:39
PROVIDERS: ADMIT Thoracic Surgery (Cardiothoracic Vascular Surgery); ATTEND Thoracic Surgery (Cardiothoracic Vascular Surgery)

== ENCOUNTER 2021-08-29 01:17 | Inpatient (IN) ==
[2021-08-29] MEDS ORDERED: Naloxone 0.4 MG/ML INJ IVP PRN (04:10)
[2021-08-29] MEDS ORDERED: 0.9 % Sodium Chloride 1,000 ML IVC SCH (04:15)
[2021-08-29] MEDS ORDERED: D5% in Water 1,000 ML IVC PRN (04:50)
[2021-08-29] MEDS ORDERED: Dextrose Gel 15 GM/37.5 ML TUBE PO PRN ×2 (04:50)
[2021-08-29] MEDS ORDERED: *HR* Dextrose 50 % in Water (Syg) 50 ML SYRINGE IVP PRN (04:50)
[2021-08-29 04:51] LABS: Eosinophils % 0.6 %; Platelet Count 284 K/mcL (140-400); Red Cell Distribution Width 18.5 % (11.5-14.5)
[2021-08-29 04:52] LABS: Basophils % 0.4 %; Eosinophils # 0.1 K/mcL (0.0-0.6); Hematocrit 20.9 % (35.3-44.9); Immature Granulocytes % 0.4 % (0-4); Lymphocytes # 1.2 K/mcL (0.6-4.6); Lymphocytes % 12.1 %; Mean Corpuscular HGB Conc 27.3 g/dL (31.6-35.5); Mean Corpuscular Hemoglobin 21.8 pg (28.0-33.3); Mean Corpuscular Volume 80.1 fL (83.0-100.0); Mean Platelet Volume 9.7 fL (9.4-12.4); Monocytes # 0.7 K/mcL (0.0-1.3); Monocytes % 7.4 %; Neutrophils # 7.8 K/mcL (1.6-8.9); Red Blood Count 2.61 M/mcL (3.82-4.97); Segmented Neutrophils % 79.1 %; White Blood Count 9.8 K/mcL (4.3-11.1)
[2021-08-29 04:57] LABS: Hemoglobin 5.7 g/dL (11.5-15.4)
[2021-08-29 05:03] LABS: INR 1.1; Prothrombin Time 11.7 Seconds (9.4-12.1)
[2021-08-29 05:05] LABS: Activated Partial Thrombo Time 30.3 Seconds (26.0-36.0)
[2021-08-29 05:06] LABS: Alanine Aminotransferase 16 Units/L (7-52); Albumin 3.5 g/dL (3.5-5.7); Albumin/Globulin Ratio 1.5 (1.1-2.2); Alkaline Phosphatase 45 Units/L (34-104); Aspartate Amino Transferase 16 Units/L (13-39); BUN/Creatinine Ratio 27 (6-26); Bilirubin,Total 0.4 mg/dL (0.3-1.0); Blood Urea Nitrogen 25 mg/dL (8-23); Calcium 8.9 mg/dL (8.6-10.3); Carbon Dioxide 30 mEq/L (23-29); Chloride 102 mEq/L (98-107); Globulin 2.4 g/dL (2.4-3.5); Glucose 114 mg/dL (70-105); Osmolality,Calculated 297 (280-300); Potassium 3.5 mEq/L (3.5-5.1); Sodium 141 mEq/L (136-145); Total Protein 5.9 g/dL (6.4-8.9); eGFR For African Americans > 60 (> 60); eGFR For Non-African Americans 59 (> 60)
[2021-08-29 05:11] LABS: Troponin I 0.04 ng/mL (< 0.04)
[2021-08-29] MEDS: Insulin LISPRO 300 UNITS/3 ML VIAL SUBQ SCH ×3 (05:31→17:03)
[2021-08-29 05:48] LABS: Bilirubin,Urine Negative (Negative); Blood,Urine Negative (Negative); Clarity,Urine Ex.Turbid (Clear); Color,Urine Yellow (Yellow); Glucose,Urine (UA) Normal (Normal); Ketones,Urine Negative (Negative); Leukocyte Esterase,Urine Negative (Negative); Mucus,Urine Few per lpf (None-Few); Nitrite,Urine Negative (Negative); Protein,Urine 100 mg/dL (Neg-Trace); RBC,Urine 15-30 per hpf (0-3); Specific Gravity,Urine 1.021 (1.010-1.025); Squamous Epithelial Cell,Urine Many per hpf (None-Few); Transitional Epi Cells,Urine Few per hpf (None-Few)
[2021-08-29] MEDS ORDERED: MethylPREDNISolone 40 MG/ML VIAL IVP SCH (06:00)
[2021-08-29] MEDS ORDERED: Azithromycin 500 MG in 0.9 % Sodium Chloride 250 ML IVPB SCH (06:00)
[2021-08-29] MEDS ORDERED: 0.9 % Sodium Chloride 250 ML ONE ×2 (07:23→07:26)
[2021-08-29] MEDS: Pantoprazole 40 MG VIAL IVP SCH ×2 (07:38→17:01)
[2021-08-29] MEDS: *HR* HYDROcodone/Acet 5/325 mg TABLET PO PRN ×2 (09:41→17:01)
[2021-08-29] MEDS: Ondansetron 4 MG/2 ML VIAL IVP PRN (09:41)
[2021-08-29] MEDS: Ipratropium/Albuterol Neb 3 ML IH SCH ×4 (10:07→20:39)
[2021-08-29] MEDS: Azithromycin 250 MG TABLET PO SCH (14:20)
[2021-08-29 14:56] LABS: Hematocrit 27.4 % (35.3-44.9)
[2021-08-29 14:57] LABS: Hemoglobin 7.9 g/dL (11.5-15.4)
[2021-08-30] MEDS: Insulin LISPRO 300 UNITS/3 ML VIAL SUBQ SCH ×5 (00:17→23:37)
[2021-08-30] MEDS: Ipratropium/Albuterol Neb 3 ML IH SCH ×7 (00:18→23:14)
[2021-08-30 05:22] LABS: Hemoglobin 6.9 g/dL (11.5-15.4)
[2021-08-30 05:23] LABS: Hematocrit 23.8 % (35.3-44.9); Mean Corpuscular Hemoglobin 23.5 pg (28.0-33.3); Mean Corpuscular Volume 81.2 fL (83.0-100.0); Mean Platelet Volume 9.5 fL (9.4-12.4); Platelet Count 253 K/mcL (140-400); Red Blood Count 2.93 M/mcL (3.82-4.97); Red Cell Distribution Width 18.6 % (11.5-14.5); White Blood Count 8.3 K/mcL (4.3-11.1)
[2021-08-30 05:55] LABS: Magnesium 1.8 mg/dL (1.6-2.6); Potassium 4.7 mEq/L (3.5-5.1)
[2021-08-30] MEDS: Pantoprazole 40 MG VIAL IVP SCH (06:02)
[2021-08-30] MEDS ORDERED: 0.9 % Sodium Chloride 250 ML ONE (06:24)
[2021-08-30] MEDS: *HR* HYDROcodone/Acet 5/325 mg TABLET PO PRN ×2 (06:30→12:12)
[2021-08-30] MEDS: Azithromycin 250 MG TABLET PO SCH (08:49)
[2021-08-30] MEDS ORDERED: Aspirin 81 MG TAB.CHEW PO SCH (09:00)
[2021-08-30] MEDS ORDERED: Lidocaine -MPF 2% 5 ML VIAL ONE (13:27)
[2021-08-30 16:17] LABS: Hematocrit 29.1 % (35.3-44.9); Hemoglobin 8.9 g/dL (11.5-15.4)
[2021-08-30] MEDS: Ondansetron 4 MG/2 ML VIAL IVP PRN (19:58)
[2021-08-31] MEDS: Ipratropium/Albuterol Neb 3 ML IH SCH ×6 (03:20→23:29)
[2021-08-31] MEDS: Insulin LISPRO 300 UNITS/3 ML VIAL SUBQ SCH ×4 (07:40→20:14)
[2021-08-31] MEDS: *HR* HYDROcodone/Acet 5/325 mg TABLET PO PRN ×2 (07:45→20:16)
[2021-08-31] MEDS: Azithromycin 250 MG TABLET PO SCH (07:45)
[2021-08-31] MEDS: Aspirin Enteric Coated 81 MG Tablet PO SCH (10:18)
[2021-08-31 10:47] LABS: Basophils % 0.3 %; Eosinophils # 0.1 K/mcL (0.0-0.6); Eosinophils % 0.7 %; Hematocrit 31.9 % (35.3-44.9); Hemoglobin 9.3 g/dL (11.5-15.4); Immature Granulocytes % 0.5 % (0-4); Lymphocytes # 0.8 K/mcL (0.6-4.6); Lymphocytes % 6.3 %; Mean Corpuscular HGB Conc 29.2 g/dL (31.6-35.5); Mean Corpuscular Hemoglobin 24.5 pg (28.0-33.3); Mean Corpuscular Volume 84.2 fL (83.0-100.0); Mean Platelet Volume 9.4 fL (9.4-12.4); Monocytes # 0.7 K/mcL (0.0-1.3); Monocytes % 6.1 %; Neutrophils # 10.4 K/mcL (1.6-8.9); Platelet Count 275 K/mcL (140-400); Red Blood Count 3.79 M/mcL (3.82-4.97); Segmented Neutrophils % 86.1 %
[2021-08-31 11:10] LABS: Calcium 9.3 mg/dL (8.6-10.3); Potassium 4.9 mEq/L (3.5-5.1)
[2021-09-01] MEDS: Ondansetron 4 MG/2 ML VIAL IVP PRN (02:54)
[2021-09-01] MEDS: Ipratropium/Albuterol Neb 3 ML IH SCH ×6 (03:25→23:39)
[2021-09-01 05:05] LABS: Basophils % 0.3 %; Eosinophils # 0.1 K/mcL (0.0-0.6); Eosinophils % 1.1 %; Hematocrit 28.6 % (35.3-44.9); Hemoglobin 8.6 g/dL (11.5-15.4); Immature Granulocytes % 0.6 % (0-4); Lymphocytes # 0.8 K/mcL (0.6-4.6); Lymphocytes % 7.9 %; Mean Corpuscular HGB Conc 30.1 g/dL (31.6-35.5); Mean Corpuscular Hemoglobin 24.9 pg (28.0-33.3); Mean Corpuscular Volume 82.7 fL (83.0-100.0); Mean Platelet Volume 9.3 fL (9.4-12.4); Monocytes # 0.8 K/mcL (0.0-1.3); Monocytes % 7.4 %; Neutrophils # 8.7 K/mcL (1.6-8.9); Platelet Count 240 K/mcL (140-400); Red Blood Count 3.46 M/mcL (3.82-4.97); Red Cell Distribution Width 19.4 % (11.5-14.5); Segmented Neutrophils % 82.7 %; White Blood Count 10.5 K/mcL (4.3-11.1)
[2021-09-01 05:25] LABS: BUN/Creatinine Ratio 33 (6-26); Blood Urea Nitrogen 30 mg/dL (8-23); Calcium 8.9 mg/dL (8.6-10.3); Carbon Dioxide 28 mEq/L (23-29); Chloride 99 mEq/L (98-107); Glucose 114 mg/dL (70-105); Osmolality,Calculated 283 (280-300); Potassium 4.5 mEq/L (3.5-5.1); Sodium 133 mEq/L (136-145); eGFR For African Americans > 60 (> 60); eGFR For Non-African Americans 59 (> 60)
[2021-09-01] MEDS: Aspirin Enteric Coated 81 MG Tablet PO SCH (08:18)
[2021-09-01] MEDS: Azithromycin 250 MG TABLET PO SCH (08:19)
[2021-09-01] MEDS: Insulin LISPRO 300 UNITS/3 ML VIAL SUBQ SCH ×4 (08:20→22:05)
[2021-09-01 12:57] LABS: Influenza A PCR Negative (Negative); Influenza B PCR Negative (Negative); Resp. Syncytial Virus PCR Negative (Negative)
[2021-09-01 13:00] LABS: SARS-CoV-2 by PCR (In House) Negative (Negative)
[2021-09-01] MEDS: *HR* HYDROcodone/Acet 5/325 mg TABLET PO PRN ×2 (13:19→19:08)
[2021-09-02] MEDS: Ipratropium/Albuterol Neb 3 ML IH SCH ×3 (03:22→10:57)
[2021-09-02 05:30] LABS: Hematocrit 31.7 % (35.3-44.9); Hemoglobin 9.4 g/dL (11.5-15.4); Mean Corpuscular HGB Conc 29.7 g/dL (31.6-35.5); Mean Corpuscular Hemoglobin 25.4 pg (28.0-33.3); Mean Corpuscular Volume 85.7 fL (83.0-100.0); Mean Platelet Volume 9.6 fL (9.4-12.4); Platelet Count 265 K/mcL (140-400); Red Cell Distribution Width 19.7 % (11.5-14.5); White Blood Count 13.6 K/mcL (4.3-11.1)
[2021-09-02 05:52] LABS: BUN/Creatinine Ratio 33 (6-26); Blood Urea Nitrogen 30 mg/dL (8-23); Calcium 9.3 mg/dL (8.6-10.3); Carbon Dioxide 32 mEq/L (23-29); Chloride 99 mEq/L (98-107); Glucose 116 mg/dL (70-105); Osmolality,Calculated 287 (280-300); Potassium 4.5 mEq/L (3.5-5.1); Sodium 135 mEq/L (136-145); eGFR For African Americans > 60 (> 60); eGFR For Non-African Americans > 60 (> 60)
[2021-09-02] MEDS: Aspirin Enteric Coated 81 MG Tablet PO SCH (08:18)
[2021-09-02] MEDS: *HR* HYDROcodone/Acet 5/325 mg TABLET PO PRN ×2 (08:18→12:46)
[2021-09-02] MEDS: Insulin LISPRO 300 UNITS/3 ML VIAL SUBQ SCH ×2 (08:19→11:54)
[2021-09-02] MEDS ORDERED: Ondansetron ODT 4 MG TAB.RAPDIS SL PRN (09:30)
[2021-09-02 14:48] VITALS: BP 129/64; PULSE 73; TEMP 98; O2SAT 95
== END 2021-09-02 15:03 | DRG 535 ==
LOC: 4WAOSI → SUATTDRO 03:32
PROVIDERS: ADMIT Internal Medicine; ATTEND Family Medicine
PROC: ENDOEBX (2021-08-30 13:30)